=== PATIENT | female | born 1955 | race Caucasian/White ===

== ENCOUNTER → 2017-05-06 | Day surgery (SDC) | payer OTHER ==
[~2017-05-06] MED LIST: ACETAMINOPHEN/HYDROcodone 325 MG/5 MG TAB ONE; BUPIVACAINE HCL PF 0.25% 10 ML VIAL ONE; KETOROLAC TROMETHAMINE 30 MG/ML (IVP) VIAL IV PUSH ONE; LACTATED RINGER'S 1000 ML INJ 1,000 ML ONE; MIDAZOLAM HCL 2 MG/2 ML VIAL ONE; ONDANSETRON HCL 4 MG/2 ML VIAL IV PUSH ONE; PROPOFOL 200 MG/20 ML AMP IV ONE; ceFAZolin 2 GM PREMIX 50 ML ONE
--- NOTE | 2017-05-06 16:01 | MP ---
cc: John Love DPM DATE OF OPERATION: 05/06/2017 PREOPERATIVE DIAGNOSIS: Right hallux exostosis/mass. POSTOPERATIVE DIAGNOSIS: Right hallux exostosis/mass. PROCEDURE PERFORMED: Right hallux exostectomy with mass excision, presumed ganglion. SPECIMEN: Bone and soft tissue x 3. ESTIMATED BLOOD LOSS: Less than 30 mL. ANESTHESIA: General anesthesia was used. 10 cc of 0.25% Marcaine plain utilized. TOURNIQUET TIME: 30 minutes at 215 mmHg setting at the right ankle. COMPLICATIONS: None. DISPOSITION: Discharged home when stable per same day surgery criteria. JUSTIFICATION FOR PROCEDURE: This is a pleasant 61-year-old female with worsening right foot pain. She has a palpable hard nodule at the plantar aspect of the IPJ and a dorsal ganglion. We devised a plan to move forward with excision and removal of the painful areas. The patient was educated on possible recurrence, numbness, burning, tingling, need for more surgery at a later date. No guarantees were given or implied regarding the outcome. PROCEDURE IN DETAIL: Under moderate sedation the patient was brought into the operating room, placed on the operating room table in supine position. Following the induction of general anesthesia, local anesthesia was attained about the patient's first ray utilizing 10 cc of 0.25% Marcaine plain. The right foot was then scrubbed, prepped and draped in the usual aseptic fashion. The foot was elevated, exsanguinated and the previously placed mid-ankle tourniquet was inflated to 215 mmHg. An incision was made over the medial aspect of the IPJ. Sharp and blunt dissection was carried, being careful not to violate the neurovascular bundle. A subperiosteal dissection took place allowing elevation of deep tissue to gain access to a fluctuant soft tissue mass over the dorsal aspect of the foot. The margins were identified. It appeared a stalk was coming from the hallux IPJ dorsally just beneath the extensor hallucis longus tendon. This was excised and the stalk was sutured and cauterized. EHL was noted to be intact. The wound was flushed with copious amounts of normal saline. Attention was then directed plantarly. Subperiosteal dissection took place allowing for access into the plantar IPJ joint capsule and there was noted to be an accessory sesamoid type bone which was excised. There was noted to be chronic synovitic findings that were making up a bulky mass-type lesion over the plantar aspect of the hallux. It was easily excised without any signs of deep involvement coming from bone or tendon. FHL was noted to be intact without any compromise. The wound was flushed with copious amounts of normal saline. The deep capsule was closed utilizing Vicryl. The skin was closed utilizing nylon. Upon relieving the tourniquet, there was a prompt hyperemic response to all digits without any delay in capillary fill time. A bulky bandage was placed and the patient transferred from OR to PACU. She is heel weight-bear to tolerance. She will ice and elevated. I will see the patient in 3-5 days. LUIS ALBERTO Allen/RAEGAN , 03:41 PM , 03:59 PM
== END | disposition home or self-care (01) ==
LOC: ESDC 12:34
PROVIDERS: ATTEND Podiatrist Foot & Ankle Surgery
DX: M25.774 Osteophyte, right foot (principal); M67.471 Ganglion, right ankle and foot
CPT/HCPCS: 01470; 01480; 28045; 28160; 88304; 88305; 88311; J0690; J1885; J2250; J2405; J3010; J7120